=== PATIENT | male | born 1970 | race Caucasian/White ===

== ENCOUNTER 2017-09-27 05:31 | Day surgery (SDC) | payer OTHER, SELFPAY ==
--- NOTE | 2017-09-27 05:31 | DT_ITS ---
This patient was seen during an EMR downtime September 23, 2017 - September 30, 2017. This patient may have a combination of paper and electronic documentation or all paper documentation. All documentation is viewable within the e-chart portion of [facility] for each patient visit.
--- NOTE | 2017-10-03 08:26 | PCM.OPRPT ---
Report of Operation Date of Procedure: 09/27/17 Pre-Operative Diagnosis: Right shoulder rotator cuff tear Post-Operative Diagnosis: Right shoulder rotator cuff tear Surgery/Procedure Performed:: Diagnostic and operative arthroscopy of the right shoulder with rotator cuff repair, subacromial decompression, distal clavicle resection, extensive intra-articular debridement Description of Surgical Findings:: Full-thickness rupture tendon attachment of supraspinatus stallion keeper: Chanda Yeh Type of Anesthesia:: General/Regional Anesthesiologist: Juan Zavala Estimated Blood Loss (mL): 5 Fluids Replaced: See anesthesia report Description of Procedure: Implants: Arthrex double loaded corkscrew 5.5 mm ?1, swivel lock ?1 Surgical indications: Segundo has suffered a shoulder injury. MRI does confirm the presence of a full-thickness tear of the supraspinatus. He has failed conservative measures and has elected to undergo the above procedure Procedure description: Patient was greeted in the preoperative area. Their right shoulder was marked with surgical marker. Preoperative antibiotics were administered. The patient was then taken to the operating suite in a stable condition. After adequate anesthesia was obtained and it was secured there placed in standard beachchair position. All bony prominences were well-padded her head was secured in a beachchair positioner. The arm was then prepped and draped in the usual sterile fashion. Surgical timeout was performed surgery was commenced. Standard posterior viewing portal was made and 30? arthroscope was introduced into the glenohumeral joint. Anterior portal was made under direct visualization. Extensive debridement of the anterior capsule was performed evaluation of the shoulder itself was performed with the following findings: No labral tearing was identified. The attachment of the biceps tendon was normal. There was some mild inflammation of the intertubercular portion of the long head of the biceps. Full-thickness tearing of the supraspinatus was identified intra-articularly. The subacromial space was then entered and extensive debridement of the subacromial bursa was performed. The undersurface of the acromion was then debrided with a thermal wand. This did reveal a type II acromion. Subacromial decompression was then performed with a arthroscopic bur from anterolateral posteromedial create a type I acromion. When this was complete the wand was then utilized to debride the acromioclavicular joint. No significant osteoarthritic changes. A distal clavicle resection was then performed removing approximately 5 mm of distal clavicle not violating the superior acromioclavicular ligament. This was complete attention was then turned to the rotator cuff. The leading edge of the rotator cuff was debrided. There was a full-thickness tear is cross enteric shape approximately 2-1/2 cm anterior to posterior area there was approximately 2 cm of retraction. The greater tuberosity was debrided and decorticated to create some bleeding for rotator cuff healing. A double loaded corkscrew was then placed in the prepared greater tuberosity. [employer] suture passer was then used to pass the suture in a horizontal mattress type fashion. Each limb was then secured with a sliding locking knot with 5/2 hitches. Excellent loop and not security was identified and excellent approximation of the tendon to the decorticated bone was achieved. These were then loaded in a swivel lock and placed to create a double row type repair laterally. Excellent approximation of the rotator cuff to the decorticated bone was achieved. At this point all instruments were removed and the arthroscopic portals were closed with 3-0 nylon. Well-padded nonadherent dressing was applied and patient was taken to recovery room in stable condition. human resources assistant was integral in all portions of this procedure. They assisted with positioning the patient, draping the extremity, holding retractors, closing the wound, and applying the dressing. This was all done under my direct supervision. The physician human resources assistant was essential for a successful, efficient surgery. - Admit VTE Documentation VTE Present on Admission: Yes VTE Mechan Device Prophylaxis: SCD's, Thigh High KIANNA Hose VTE Pharm Prophylaxis ordered?: No Reason prophylaxis not ordered:: Procedure Not Indicated
--- NOTE | 2017-10-03 08:34 | OP.PCM_ITS ---
Report of Operation Date of Procedure: 09/27/17 Pre-Operative Diagnosis: Right shoulder rotator cuff tear Post-Operative Diagnosis: Right shoulder rotator cuff tear Surgery/Procedure Performed:: Diagnostic and operative arthroscopy of the right shoulder with rotator cuff repair, subacromial decompression, distal clavicle resection, extensive intra-articular debridement Description of Surgical Findings:: Full-thickness rupture tendon attachment of supraspinatus vp data: Chanda Yeh Type of Anesthesia:: General/Regional Anesthesiologist: Juan Zavala Estimated Blood Loss (mL): 5 Fluids Replaced: See anesthesia report Description of Procedure: Implants: Arthrex double loaded corkscrew 5.5 mm ?1, swivel lock ?1 Surgical indications: Segundo has suffered a shoulder injury. MRI does confirm the presence of a full-thickness tear of the supraspinatus. He has failed conservative measures and has elected to undergo the above procedure Procedure description: Patient was greeted in the preoperative area. Their right shoulder was marked with surgical marker. Preoperative antibiotics were administered. The patient was then taken to the operating suite in a stable condition. After adequate anesthesia was obtained and it was secured there placed in standard beachchair position. All bony prominences were well-padded her head was secured in a beachchair positioner. The arm was then prepped and draped in the usual sterile fashion. Surgical timeout was performed surgery was commenced. Standard posterior viewing portal was made and 30? arthroscope was introduced into the glenohumeral joint. Anterior portal was made under direct visualization. Extensive debridement of the anterior capsule was performed evaluation of the shoulder itself was performed with the following findings: No labral tearing was identified. The attachment of the biceps tendon was normal. There was some mild inflammation of the intertubercular portion of the long head of the biceps. Full-thickness tearing of the supraspinatus was identified intra-articularly. The subacromial space was then entered and extensive debridement of the subacromial bursa was performed. The undersurface of the acromion was then debrided with a thermal wand. This did reveal a type II acromion. Subacromial decompression was then performed with a arthroscopic bur from anterolateral posteromedial create a type I acromion. When this was complete the wand was then utilized to debride the acromioclavicular joint. No significant osteoarthritic changes. A distal clavicle resection was then performed removing approximately 5 mm of distal clavicle not violating the superior acromioclavicular ligament. This was complete attention was then turned to the rotator cuff. The leading edge of the rotator cuff was debrided. There was a full-thickness tear is cross enteric shape approximately 2-1/2 cm anterior to posterior area there was approximately 2 cm of retraction. The greater tuberosity was debrided and decorticated to create some bleeding for rotator cuff healing. A double loaded corkscrew was then placed in the prepared greater tuberosity. [employer] suture passer was then used to pass the suture in a horizontal mattress type fashion. Each limb was then secured with a sliding locking knot with 5/2 hitches. Excellent loop and not security was identified and excellent approximation of the tendon to the decorticated bone was achieved. These were then loaded in a swivel lock and placed to create a double row type repair laterally. Excellent approximation of the rotator cuff to the decorticated bone was achieved. At this point all instruments were removed and the arthroscopic portals were closed with 3-0 nylon. Well-padded nonadherent dressing was applied and patient was taken to recovery room in stable condition. stylist assistant was integral in all portions of this procedure. They assisted with positioning the patient, draping the extremity, holding retractors, closing the wound, and applying the dressing. This was all done under my direct supervision. The physician stylist assistant was essential for a successful, efficient surgery. - Admit VTE Documentation VTE Present on Admission: Yes VTE Mechan Device Prophylaxis: SCD's, Thigh High KIANNA Hose VTE Pharm Prophylaxis ordered?: No Reason prophylaxis not ordered:: Procedure Not Indicated
[2017-10-04 20:36] LABS: Bedside Glucose 210 mg/dL (70-110)
[2017-10-09 08:51] LABS: Bedside Glucose 224 mg/dL (70-110)
== END 2017-09-27 10:50 | disposition home or self-care (01) ==
LOC: SDC 05:37 → AC 09:29
PROVIDERS: Visit Provider Orthopaedic Surgery
PROC: (CPT 29827; principal; 2017-09-27 06:55)
DX: S46.011A Strain of muscle(s) and tendon(s) of the rotator cuff of right shoulder, initial encounter (principal); M75.41 Impingement syndrome of right shoulder; M19.011 Primary osteoarthritis, right shoulder; X58.XXXA Exposure to other specified factors, initial encounter; Y93.54 Activity, bowling; Y92.9 Unspecified place or not applicable; Y99.9 Unspecified external cause status; E11.9 Type 2 diabetes mellitus without complications; I10 Essential (primary) hypertension; E78.00 Pure hypercholesterolemia, unspecified; K21.9 Gastro-esophageal reflux disease without esophagitis; I25.2 Old myocardial infarction; Z79.899 Other long term (current) drug therapy; Z79.84 Long term (current) use of oral hypoglycemic drugs; Z79.82 Long term (current) use of aspirin; Z87.891 Personal history of nicotine dependence; Z95.5 Presence of coronary angioplasty implant and graft
CPT/HCPCS: 01630; 29823; 29824; 29826; 29827; 64415; 82962; J7120; C1713; J2405